=== PATIENT | male | born 1975 | race Two or more races ===

== ENCOUNTER → 2016-08-03 | Outpatient (CLI) | payer BC ==
[2016-08-03 08:00] LABS: Basophils # (auto) 0.1 uL; Eosinophils # (auto) 0.2 uL; Eosinophils % (auto) 3.4 % (0.0-7.0); Hematocrit 46.9 % (41.0-53.0); Hemoglobin 15.4 g/dL (13.5-17.5); Lymphocytes # (auto) 1.9 uL; Lymphocytes % (auto) 31.3 % (10.0-50.0); Mean Corpuscular Hemoglobin 29.4 pg (28.0-32.0); Mean Corpuscular Hgb Conc. 32.8 g/dL (32.0-36.0); Mean Corpuscular Volume 89.8 fL (80.0-100.0); Mean Platelet Volume 8.2 fL (7.4-10.4); Monocytes # (auto) 0.5 uL; Monocytes % (auto) 8.6 % (0.0-12.0); Neutrophils # (auto) 3.4 uL; Neutrophils % (auto) 55.7 % (37.0-80.0); Platelet Count (auto) 257 10^3/uL (140-450); Red Cell Distribution Width 12.7 % (11.6-16.0); White Blood Cell 6.1 10^3/uL (4.4-10.8)
[2016-08-03 08:32] LABS: Albumin 4.4 g/dL (3.4-5.0); BUN/Creatinine Ratio 22.7; Bilirubin, Total 0.7 mg/dL (0.2-1.0); Calcium 8.9 mg/dL (8.5-10.1); Potassium 3.8 mmol/L (3.5-5.1); Total Protein 7.7 g/dL (6.4-8.2)
== END | disposition home or self-care (01) ==
LOC: LAB 06:42
DX: R51 Headache (principal)
CPT/HCPCS: 36415; 80053; 80061; 84439; 85025; 85652

== ENCOUNTER → 2023-01-03 | Outpatient (CLI) | payer BC ==
[2023-01-03 09:08] LABS: Urine WBC None Seen /hpf (0 - 3)
[2023-01-03 09:29] LABS: Urine Bacteria NONE SEEN /hpf (None Seen); Urine Blood Negative /uL (Negative); Urine Specific Gravity 1.015 (1.001-1.035)
[2023-01-03 10:22] LABS: CRP High Sensitivity 0.29 mg/dL (< 0.3); Uric Acid 4.4 mg/dL (3.5-7.2)
== END | disposition home or self-care (01) ==
LOC: LAB 08:52
PROVIDERS: ATTEND Internal Medicine
DX: M79.89 Other specified soft tissue disorders (principal); M19.90 Unspecified osteoarthritis, unspecified site
CPT/HCPCS: 36415; 81001; 83036; 84550; 85652; 86141

== ENCOUNTER → 2023-05-25 | Outpatient (CLI) | payer BC ==
[2023-05-25 07:30] LABS: Triglycerides 89 mg/dL (< 150)
[2023-05-25 07:31] LABS: LDL Cholesterol 126 mg/dL (< 100)
[2023-05-25 07:32] LABS: HDL Cholesterol 48 mg/dL (40-59)
[2023-05-25 07:33] LABS: Cholesterol 188 mg/dL (< 200)
== END | disposition home or self-care (01) ==
LOC: LAB 06:25
PROVIDERS: ATTEND Internal Medicine
DX: E78.5 Hyperlipidemia, unspecified (principal)
CPT/HCPCS: 36415; 80061

== ENCOUNTER 2025-02-17 10:46 | Emergency (ER) | payer BC ==
[~2025-02-17] VITALS: Ht 175.3 cm; Wt 85.5 kg
--- NOTE | 2025-02-17 11:31 | ED.PDOC ---
History of Present Illness(SKN HPI Comments 49 y.o male presents to the ED for an evaluation of his right index finger s/p trauma today. Patient reports using sledgehammer that slipped and cut the finger tip. Patient has no active bleeding at this time. He denies lightheadedness, numbness or tingling sensation to digit. Patient is not up to date with tetanus.. He denies any medical history or allergies. Time Seen by MD: 11:23 Primary Care Provider: TERESA History of Present Illness: Nurses Notes, Medications, Allergies Allergies: Coded Allergies: NO KNOWN ALLERGIES (Unverified , 04/18/16) Home Meds Active Scripts Hydrocodone-Acetaminophen (Hydrocodone Bitartrate/AC 5-325 mg) 1 Tab Tab, 1 TAB PO Q12HP PRN for 7 Days, #14 TAB Prov:JENNIFER ALVARADO MD 02/17/25 Information Source: Patient Mode of Arrival: Ambulatory Severity: Moderate Timing: Hours Duration: Since onset Location: Hand Mechanism: Blunt Trauma Wound Type: Other Associated Signs and Symptoms: Pain Past Medical History PAST MEDICAL HISTORY: Denies Surgical History: Denies all surgeries Family History Family History: Unknown Social History Smoker: Non-Smoker Alcohol: Denies ETOH Use Drugs: Denies Drug Use Constitutional: denies: chills, diaphoresis, fatigue, fever, malaise, sweats, weakness, others EENTM: denies: blurred vision, double vision, ear bleeding, ear discharge, ear drainage, ear pain, ear ringing, eye pain, eye redness, hearing loss, mouth pain, mouth swelling, nasal discharge, nose bleeding, nose congestion, nose pain, photophobia, tearing, throat pain, throat swelling, voice changes, others Respiratory: denies: cough, hemoptysis, orthopnea, SOB at rest, shortness of breath, SOB with excertion, stridor, wheezing, others Cardiovascular: denies: chest pain, dizzy spells, diaphoresis, Dyspnea on exertion, edema, irregular heart beat, left arm pain, lightheadedness, palpitations, PND, syncope, others Gastrointestinal: denies: abdomen distended, abdominal pain, blood streaked bowels, constipated, diarrhea, dysphagia, difficulty swallowing, hematemesis, melena, nausea, poor appetite, poor fluid intake, rectal bleeding, rectal pain, vomiting, others Genitourinary: denies: burning, dysuria, flank pain, frequency, hematuria, incontinence, penile discharge, penile sore, pain, testicle pain, testicle swelling, urgency, others Neurological: denies: dizziness, fainting, headache, left sided numbness, left sided weakness, numbness, paresthesia, pre-existing deficit, right sided numbness, right sided weakness, seizure, speech problems, tingling, tremors, weakness, others Musculoskeletal: denies: back pain, gout, joint pain, joint swelling, muscle pain, muscle stiffness, neck pain, others Integumetry: reports: laceration; denies: bruises, change in color, change in hair/nails, dryness, lesions, lumps, rash, wounds, others Allergic/Immunocompromised: denies: Difficulty Healing, Frequent Infections, Hives, Itching, others Hematologic/Lymphatic: denies: anemia, blood clots, easy bleeding, easy bruising, swollen glands, others Endocrine: denies: excessive hunger, excessive sweating, excessive thirst, excessive urination, flushing, intolerance to cold, intolerance to heat, unexplained weight gain, unexplained weight loss, others Psychiatric: denies: anxiety, bipolar disorder, depression, hopeless, panic disorder, schizophrenia, sleepless, suicidal, others All Other Systems: Reviewed and Negative Physical Exam General Appearance: Moderate Distress HEENT: Normal ENT Inspection, Pharynx Normal, TMs Normal Neck: Full Range of Motion, Non-Tender, Normal, Normal Inspection Respiratory: Chest Non-Tender, Lungs Clear, No Accessory Muscle Use, No Respira tory Distress, Normal Breath Sounds Cardiovascular: No Edema, No JVD, No Murmur, No Gallop, Normal Peripheral Pulses, Regular Rate/Rhythm Breast Exam: Deferred Gastrointestinal: No Organomegaly, Non Tender, No Pulsatile Mass, Normal Bowel Sounds, Soft Genitalia: Deferred Pelvic: Deferred Rectal: Deferred Extremities: No calf tenderness, Normal capillary refill, No pedal edema, Other (Right index finger with laceration to the tip of the nail) Musculoskeletal : Apperance: Normal Neurologic: Alert, delivery room clerk II-XII nml as Tested, No Motor Deficits, Normal Affect, Normal Mood, No Sensory Deficits Cerebellar Function: Normal Reflexes: Normal Skin: Dry, Normal Color, Warm Lymphatic: No Adenopathy Was a procedure done? Was a procedure done?: No Differential Diagnosis (INTG) Differential Diagnosis: N/A Differential Diagnosis: Laceration, Open Fracture, Puncture Wound X-Ray, Labs, Meds, VS Vital Signs Date Time Temp Pulse Resp B/P (MAP) Pulse Ox O2 Delivery O2 Flow Rate FiO2 02/17/25 17:00 98.7 67 20 155/90 (111) 95 98.7 02/17/25 15:29 69 18 148/97 (114) 96 02/17/25 12:16 70 18 145/90 (108) 96 02/17/25 11:22 98.8 74 16 156/98 (117) 96 98.8 Current Medications Medications (Trade) Dose Ordered Sig/Sumit Route Start Time Stop Time Status Last Admin Diphtheria/ Tetanus/Acell Pertussis (Boostrix T-Dap) 0.5 ml ONCE ONCE IM 02/17/25 11:30 02/17/25 11:31 DC 02/17/25 12:20 XY R 2ND FINGER XRAY, IMPRESSION: Fracture at the tuft 2nd distal phalanx. thumb. The patient had Dermabond placed. The patient was then placed in a splint The patient was given a prescription of [place] The patient was also given a tetanus shot The patient will return to the emergency department's condition worsens. Images Reviewed?: Images reviewed and evaluated by me Time of 1ST Reevaluation: 11:30 Reevaluation 1ST: Unchanged Patient Education/Counseling: Diagnosis, Treatment, Prognosis, Need For Follow Up Family Education/Counseling: No Family Present SEPSIS Sepsis Screen Physician Orders R 2nd Finger Xray (02/17/25 11:25) Splints (02/17/25 13:43) Vital Signs Date Time Temp Pulse Resp B/P (MAP) Pulse Ox O2 Delivery O2 Flow Rate FiO2 02/17/25 17:00 98.7 67 20 155/90 (111) 95 98.7 02/17/25 15:29 69 18 148/97 (114) 96 02/17/25 12:16 70 18 145/90 (108) 96 02/17/25 11:22 98.8 74 16 156/98 (117) 96 98.8 Medications Medications Dose Ordered Sig/Sumit Route Start Time Stop Time Status Last Admin Dose Admin Diphtheria/ Tetanus/Acell Pertussis 0.5 ml ONCE ONCE IM 02/17/25 11:30 02/17/25 11:31 DC 02/17/25 12:20 Departure 1 Departure Time of Disposition: 18:04 Impression: Primary Impression: Avulsion fracture Disposition: HOME / SELF CARE / HOMELESS Condition: Fair e-Prescriptions Hydrocodone-Acetaminophen (Hydrocodone Bitartrate/AC 5-325 mg) 1 Tab Tab 1 TAB PO Q12HP PRN for 7 Days, #14 TAB Prov: JENNIFER ALVARADO MD 02/17/25 Discharged With: Self Critical Care Note Critical Care Time?: No Stability Stability form required: No I personally scribed for JENNIFER ALVARADO MD ([email or web address]) on 02/17/25 at 11:31. Electronically submitted by Stacy Tinsley ([facility]). I personally scribed for JENNIFER ALVARADO MD ([email or web address]) on 02/17/25 at 13:24. Electronically submitted by Stacy Tinsley ([facility]). JENNIFER ALVARADO MD Feb 17, 2025 11:31
[2025-02-17] MEDS: TETANUS-DIPTH-ACEL PERTUSSIS 0.5ML SYR Tdap IM ONE (12:20)
--- NOTE | 2025-02-17 12:44 | DVH ---
XY R 2ND FINGER XRAY, INDICATION: trauma TECHNICAL DATA: Frontal view of the right hand and lateral and oblique views of the right 2nd digit w ere obtained. COMPARISON: None FINDINGS: Fracture at the tuft 2nd distal phalanx. Joint spaces are maintained. Alignment is anatomic. IMPRESSION: Fracture at the tuft 2nd distal phalanx. thumb.
[2025-02-17 17:00] VITALS: BP 155/90; PULSE 67; RESP 20; TEMP 98.7; O2SAT 95
[2025-02-17] MEDS ORDERED: HYDR-4902 PO (18:03)
[2025-02-17] MEDS ORDERED: ETOMIDATE (2MG/ML) 20ML VIAL IV ONE (19:45)
== END 2025-02-17 18:24 | disposition home or self-care (01) ==
LOC: ER 10:56
DX: S62.630A Displaced fracture of distal phalanx of right index finger, initial encounter for closed fracture (principal); W27.8XXA Contact with other nonpowered hand tool, initial encounter; Y93.89 Activity, other specified; Y92.89 Other specified places as the place of occurrence of the external cause; Y99.8 Other external cause status
CPT/HCPCS: 12001; 29130; 73140; 90471; 90715